=== PATIENT | male | born 1970 | race American Indian/Alaskan Native ===

== ENCOUNTER 2016-11-28 05:05 | Emergency (ER) | payer MEDICARE ==
[2016-11-28 05:16] VITALS: BP 105/72
--- NOTE | 2016-11-28 06:08 | XRay Report ---
FINAL REPORT PROCEDURE: XR FINGER(S) 2 RT TECHNIQUE: RIGHT 5th finger radiographs, including AP, lateral, and oblique views. HISTORY: Injury OF RT FINGER COMPARISON: No prior studies are available for comparison. FINDINGS: There are cortical fractures of the dorsal aspect of the base of the 5th middle phalanx. There is no joint dislocation. There is soft tissue swelling of the 5th digit. There is deformity of the distal portion of the 4th proximal phalanx which could be due to an old fracture. The remainder of the hand is intact. 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 IMPRESSION: There are cortical fractures of the dorsal aspect of the base of the 5th middle phalanx. There is no joint dislocation. There is soft tissue swelling of the 5th digit. There is deformity of the distal portion of the 4th proximal phalanx which could be due to an old fracture
[2016-11-28] MEDS ORDERED: XYLOCAINE 1% MPF 5 mL INFILTRATI ONE (06:22)
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
[2016-11-28] MEDS ORDERED: MOTRIN PO ONE (06:43)
== END 2016-11-28 07:06 | disposition home or self-care (01) ==
LOC: ED 05:05
DX: S62.606A Fracture of unspecified phalanx of right little finger, initial encounter for closed fracture (principal); X58.XXXA Exposure to other specified factors, initial encounter; Y93.89 Activity, other specified; Y99.8 Other external cause status; Y92.89 Other specified places as the place of occurrence of the external cause